=== PATIENT | female | born 1945 | race Caucasian/White ===

== ENCOUNTER 2018-06-25 16:52 | Emergency (ER) | payer MEDICARE, MEDICAID ==
--- NOTE | 2018-06-25 17:42 | CR ---
[id number] RAD/RAD Chest PA And Lateral EXAM: FRONTAL AND LATERAL CHEST INDICATION: Syncope and bradycardia. COMPARISON: May 14, 2015. DISCUSSION: Development of moderate enlargement of the heart which could be from cardiac enlargement or a pericardial effusion. Consider echocardiogram or CT to further evaluate for an effusion. The lungs are clear. IMPRESSION: 1. Development of significant cardiomegaly versus pericardial effusion. No current evidence of congestive heart failure. David Carcamo MD 06/25/18 [id number] Thank you for allowing us to participate in the care of your patient.
[2018-06-25 17:58] VITALS: BP 135/87
[2018-06-25] MEDS ORDERED: Sodium Chloride 0.9% 10 ML Syringe FLUSH PRN (18:00)
[2018-06-25 18:16] LABS: CHLORIDE,CL 105 mmol/L (98-107); SODIUM,NA 142 mmol/L (136-145)
[2018-06-25 18:18] LABS: ANION GAP 17.7 mmol/L (10-20)
[2018-06-25] MEDS ORDERED: Iopamidol 612 MG/ML 100 ML Bottle IVPUSH ONE (18:28)
--- NOTE | 2018-06-25 19:31 | CT ---
[id number] CT/CT Chest W IV EXAM: CHEST CT WITH CONTRAST INDICATION: CARDIOMEGALY VS PERICARDIAL EFFUSION. COMPARISON: Chest radiograph same date. DISCUSSION: The enlarged cardiac silhouette on chest radiograph relates to moderate cardiomegaly with a small pericardial effusion present along the right atrium. The lungs are hypoinflated with scattered subsegmental atelectasis. Mosaic attenuation could relate this to this incomplete inspiration or to air trapping. No infiltrates. No pleural effusions. No nodules. No lymphadenopathy. Moderate hiatus hernia. The imaged upper abdomen is unremarkable. Scattered degenerative changes in the spine. Mild chronic T3 and T4 compression fractures. IMPRESSION: 1. The heart is moderately enlarged accounting for the radiographic finding of an enlarged cardiac silhouette. There is a small pericardial effusion located along the right atrium. No current evidence of volume overload. 2. Scattered subsegmental atelectasis. David Carcamo MD 06/25/18 [id number] Thank you for allowing us to participate in the care of your patient.
--- NOTE | 2018-06-26 09:24 | EDM.PDOC ---
ED HPI GENERAL MEDICAL PROBLEM - General Chief Complaint: General Time Seen by Provider: 06/25/18 17:05 Source of Information: Reports: Patient History Limitations: Reports: No Limitations, Altered Mental Status - History of Present Illness INITIAL COMMENTS - FREE TEXT/NARRATIVE: EMS and police were sent to the patient's home for a welfare check. Pt. son states that the patient was not as talkative with him on the phone today. Pt. son lives in [place]. The son became concerned and called 911. He has a camera in her house so he can monitor her. Pt. has a longstanding mental health history, including bipolar and depression, as well as previous suicidal ideation in the past. The patient states that she has been taking her medication and has been eating and drinking adequately. Pt. PCP happened to be in the ER. He evaluated her and felt that she was behaving appropriately. Pt. offers no complaint. Son states that her mood will often change if she is stressed. She is planning on travelling to [place], and he feels that this may be what is stressing her out. Onset: Today Onset Date: 06/25/18 - Related Data Allergies Allergy/AdvReac Type Severity Reaction Status Date / Time codeine Allergy Other Verified 06/25/18 17:12 Home Meds: Home Meds Minocycline [Minocin] 100 mg PO BID 12/24/15 [History] Mirtazapine 15 mg PO BEDTIME 12/24/15 [History] PARoxetine [Paxil] 20 mg PO DAILY 12/24/15 [History] diphenhydrAMINE [Benadryl] 25 mg PO PRN 12/24/15 [History] traZODone 200 mg BEDTIME 12/24/15 [History] LORazepam 1 mg BEDTIME PRN 01/23/16 [History] Past Medical History - Past Health History Medical/Surgical History: Denies Medical/Surgical History Psychiatric History: Reports: Anxiety, Bipolar Social & Family History - Tobacco Use Smoking Status *Q: Never Smoker - Recreational Drug Use Recreational Drug Use: No ED ROS GENERAL - Review of Systems Review Of Systems: See Below Constitutional: Reports: No Symptoms HEENT: Reports: No Symptoms Respiratory: Reports: No Symptoms Cardiovascular: Reports: No Symptoms Endocrine: Reports: No Symptoms GI/Abdominal: Reports: No Symptoms : Reports: No Symptoms Musculoskeletal: Reports: No Symptoms Skin: Reports: No Symptoms Neurological: Reports: Other (see hpi) Psychiatric: Reports: Other (see hpi) Hematologic/Lymphatic: Reports: No Symptoms Immunologic: Reports: No Symptoms ED EXAM, GENERAL - Physical Exam Exam: See Below Exam Limited By: No Limitations General Appearance: Alert, WD/WN, No Apparent Distress Ears: Normal External Exam, Normal Canal, Hearing Grossly Normal, Normal TMs Nose: Normal Inspection, Normal Mucosa, No Blood Throat/Mouth: Normal Inspection, Normal Lips, Normal Teeth, Normal Gums, Normal Oropharynx, Normal Voice, No Airway Compromise Head: Atraumatic, Normocephalic Neck: Normal Inspection, Supple, Non-Tender, Full Range of Motion Respiratory/Chest: No Respiratory Distress, Lungs Clear, Normal Breath Sounds, No Accessory Muscle Use, Chest Non-Tender Cardiovascular: Normal Peripheral Pulses, Regular Rate, Rhythm, No Edema, No Gallop, No JVD, No Murmur, No Rub Peripheral Pulses: 3+: Radial (L) GI/Abdominal: Normal Bowel Sounds, Soft, Non-Tender, No Organomegaly, No Distention, No Abnormal Bruit, No Mass (Female) Exam: Deferred Rectal (Female) Exam: Deferred Back Exam: Normal Inspection, Full Range of Motion, NT Extremities: Normal Inspection, Normal Range of Motion, Non-Tender, Normal Capillary Refill, No Pedal Edema Neurological: Alert, Oriented, CN II-XII Intact, Normal Cognition, Normal Gait, Normal Reflexes, No Motor/Sensory Deficits, Inattentive, Other (answers all questions appropriately) Psychiatric: Flat Affect Skin Exam: Warm, Dry, Intact, Normal Color, Pallor EKG INTERPRETATION Rhythm: NSR Watson: Normal P-Wave: Present QRS: Normal ST-T: Normal QT: Normal Course - Vital Signs Last Recorded V/S: Last Vital Signs Temp 37.1 C 06/25/18 16:52 Pulse 91 06/25/18 16:52 Resp 16 06/25/18 16:52 BP 135/87 06/25/18 16:52 Pulse Ox 94 L 06/25/18 16:52 - Orders/Labs/Meds Orders: Active Orders 24 hr Category Date Time Status EKG Documentation Completion [RC] STAT Care 06/25/18 17:06 Active CULTURE BLOOD [BC] Stat Lab 06/25/18 17:30 Received CULTURE BLOOD [BC] Stat Lab 06/25/18 17:40 Received Blood Culture x2 Reflex Set [OM.PC] Stat Oth 06/25/18 17:08 Ordered Peripheral IV Insertion Adult [OM.PC] Routine Oth 06/25/18 18:00 Ordered Labs: Laboratory Tests 06/25/18 06/25/18 06/25/18 Range/Units 17:30 17:30 17:30 WBC 9.6 (4.0-10.0) x10^3/uL RBC 4.41 (4.00-5.50) x10^6/uL Hgb 12.7 D (12.0-16.0) g/dL Hct 38.8 (33.0-47.0) % MCV 88.0 (78.0-93.0) fL MCH 28.8 (26.0-32.0) pg MCHC 32.7 (32.0-36.0) g/dL RDW Coeff of Roseanna 14.9 (10.0-15.0) % Plt Count 334 (130-400) x10^3/uL Neut % (Auto) 70.5 (50.0-80.0) % Lymph % (Auto) 22.3 L (25.0-50.0) % [place] % (Auto) 6.9 (2.0-11.0) % Eos % (Auto) 0.2 (0.0-4.0) % Baso % (Auto) 0.1 L (0.2-1.2) % PT 11.3 (9.6-11.4) SEC INR 1.1 L (2.0-3.5) Sodium 142 (136-145) mmol/L Potassium 3.7 (3.5-5.1) mmol/L Chloride 105 (98-107) mmol/L Carbon Dioxide 23 (21-32) mmol/L Anion Gap 17.7 (10-20) mmol/L BUN 27 H (7-18) mg/dL Creatinine 1.0 (0.55-1.02) mg/dL Est Cr Clr Drug Dosing TNP Estimated GFR (MDRD) 55 Glucose 116 H (74-106) mg/dL Lactic Acid (0.4-2.0) mmol/L Calcium 9.7 (8.5-10.1) mg/dL Corrected Calcium 9.62 (8.5-10.1) mg/dL Magnesium 2.0 (1.8-2.4) mg/dL Total Bilirubin 0.6 (0.2-1.0) mg/dL AST 19 (15-37) U/L ALT 27 (14-59) U/L Alkaline Phosphatase 89 (46-116) U/L Troponin I < 0.017 (<=0.056) ng/mL C-Reactive Protein 0.2 (<=0.9) mg/dL Total Protein 7.1 (6.4-8.2) g/dL Albumin 4.1 (3.4-5.0) g/dL Globulin 3.0 Albumin/Globulin Ratio 1.37 TSH, Ultra Sensitive 3.922 H (0.358-3.74) uIU/mL Urine Color (YELLOW) Urine Appearance (CLEAR) Urine pH (5.0-8.0) Ur Specific [place] Urine Protein (NEGATIVE) mg/dL Urine Glucose (UA) (NEGATIVE) mg/dL Urine Ketones (NEGATIVE) mg/dL Urine Occult Blood (NEGATIVE) Urine Nitrite (NEGATIVE) Urine Bilirubin (NEGATIVE) Urine Urobilinogen (0.2) EU/dL Ur Leukocyte Esterase (NEGATIVE) Urine RBC (NOT SEEN) /HPF Urine WBC (NOT SEEN) /HPF Ur Squamous Epith Cells (NEGATIVE) /HPF Urine Bacteria (NEGATIVE) /HPF Urine Mucus (NEGATIVE) /LPF 06/25/18 06/25/18 Range/Units 17:30 18:00 WBC (4.0-10.0) x10^3/uL RBC (4.00-5.50) x10^6/uL Hgb (12.0-16.0) g/dL Hct (33.0-47.0) % MCV (78.0-93.0) fL MCH (26.0-32.0) pg MCHC (32.0-36.0) g/dL RDW Coeff of Roseanna (10.0-15.0) % Plt Count (130-400) x10^3/uL Neut % (Auto) (50.0-80.0) % Lymph % (Auto) (25.0-50.0) % [place] % (Auto) (2.0-11.0) % Eos % (Auto) (0.0-4.0) % Baso % (Auto) (0.2-1.2) % PT (9.6-11.4) SEC INR (2.0-3.5) Sodium (136-145) mmol/L Potassium (3.5-5.1) mmol/L Chloride (98-107) mmol/L Carbon Dioxide (21-32) mmol/L Anion Gap (10-20) mmol/L BUN (7-18) mg/dL Creatinine (0.55-1.02) mg/dL Est Cr Clr Drug Dosing Estimated GFR (MDRD) Glucose (74-106) mg/dL Lactic Acid 1.0 (0.4-2.0) mmol/L Calcium (8.5-10.1) mg/dL Corrected Calcium (8.5-10.1) mg/dL Magnesium (1.8-2.4) mg/dL Total Bilirubin (0.2-1.0) mg/dL AST (15-37) U/L ALT (14-59) U/L Alkaline Phosphatase (46-116) U/L Troponin I (<=0.056) ng/mL C-Reactive Protein (<=0.9) mg/dL Total Protein (6.4-8.2) g/dL Albumin (3.4-5.0) g/dL Globulin Albumin/Globulin Ratio TSH, Ultra Sensitive (0.358-3.74) uIU/mL Urine Color Dark yellow H (YELLOW) Urine Appearance Slightly cloudy H (CLEAR) Urine pH 5.5 (5.0-8.0) Ur Specific [place] 1.025 Urine Protein 30 H (NEGATIVE) mg/dL Urine Glucose (UA) Negative (NEGATIVE) mg/dL Urine Ketones 15 H (NEGATIVE) mg/dL Urine Occult Blood Trace-lysed H (NEGATIVE) Urine Nitrite Negative (NEGATIVE) Urine Bilirubin Small H (NEGATIVE) Urine Urobilinogen 0.2 (0.2) EU/dL Ur Leukocyte Esterase Negative (NEGATIVE) Urine RBC 5-10 H (NOT SEEN) /HPF Urine WBC 0-5 (NOT SEEN) /HPF Ur Squamous Epith Cells Few H (NEGATIVE) /HPF Urine Bacteria Few H (NEGATIVE) /HPF Urine Mucus Moderate H (NEGATIVE) /LPF Meds: Medications Discontinued Medications Generic Name Dose Route Start Last Admin Trade Name Freq PRN Reason Stop Dose Admin Iopamidol 100 ml 06/25/18 18:28 06/26/18 07:28 Isovue-300 (61%) IVPUSH 06/25/18 18:29 100 ml ONETIME ONE Administration Sodium Chloride 10 ml 06/25/18 18:00 Saline Flush FLUSH ASDIRECTED PRN Keep Vein Open - Radiology Interpretation Free Text/Narrative:: Chest x-ray showed cardiomegaly. CT chest with contrast showed small pericardial effusion Departure - Departure Time of Disposition: 21:30 Disposition: Home, Self-Care 01 Condition: Good Clinical Impression: Pericardial effusion - Discharge Information Referrals: Aris Eaton MD [Primary Care Provider] - Forms: ED Department Discharge Additional Instructions: Discussed findings with patient and family. We will discharge her with close followup with PCP. She will need an echocardiogram. I did speak with Dr. Thompson regarding this patient as well. I believe the effusion is an incidental finding. PCP will need to evaluate pt. ability to care for herself or if she will need outside help/placement elsewhere. This was discussed with son as well. From my prior dealings with the patient, she appears to be behaving normally. Home to rest. Drink plenty of fluids. You will be contacted by the clinic tomorrow regarding a follow-up appointment with Dr. Eaton and to schedule an echocardiogram. - My Orders Last 24 Hours: My Active Orders 06/25/18 17:06 EKG Documentation Completion [RC] STAT 06/25/18 17:08 Blood Culture x2 Reflex Set [OM.PC] Stat 06/25/18 17:30 CULTURE BLOOD [BC] Stat 06/25/18 17:40 CULTURE BLOOD [BC] Stat 06/25/18 18:00 Peripheral IV Insertion Adult [OM.PC] Routine - Assessment/Plan Last 24 Hours: My Active Orders 06/25/18 17:06 EKG Documentation Completion [RC] STAT 06/25/18 17:08 Blood Culture x2 Reflex Set [OM.PC] Stat 06/25/18 17:30 CULTURE BLOOD [BC] Stat 06/25/18 17:40 CULTURE BLOOD [BC] Stat 06/25/18 18:00 Peripheral IV Insertion Adult [OM.PC] Routine
== END 2018-06-25 21:30 | disposition home or self-care (01) ==
LOC: VM.ED 16:52
DX: I31.3 Pericardial effusion (noninflammatory) (principal); F41.9 Anxiety disorder, unspecified; F31.9 Bipolar disorder, unspecified; Z88.5 Allergy status to narcotic agent; Z79.899 Other long term (current) drug therapy
CPT/HCPCS: 36415; 71046; 71260; 80053; 81001; 83605; 83735; 84443; 84484; 85025; 85610; 86140; 87040; 93005; 99285

== ENCOUNTER 2018-06-26 18:46 | Emergency (ER) | payer MEDICARE, MEDICAID ==
[2018-06-26 18:53] VITALS: BP 137/96
--- NOTE | 2018-06-26 18:57 | EDM.PDOC ---
<DanielaFredy W - Last Filed: 06/26/18 18:57> ED HPI GENERAL MEDICAL PROBLEM - General Chief Complaint: Behavioral/Psych Stated Complaint: slow to respond Time Seen by Provider: 06/26/18 18:46 - History of Present Illness INITIAL COMMENTS - FREE TEXT/NARRATIVE: Refer to H and P from last night. Pt. son states that she continues to be less conversant this evening. He watches her on a closed circuit monitor and states that she has been quite inactive today. She was seen for the same last evening and was found to have a small pericardial effusion. Cardiology was consulted and advised she be scheduled for an echo as an outpatient. She was sent home by [facility] last night. There was no evidence of UTI or pneumonia on her exam last night. Vitals and labs were all WNL at that time. She is - Related Data Allergies Allergy/AdvReac Type Severity Reaction Status Date / Time codeine Allergy Other Verified 06/26/18 18:54 Home Meds: Home Meds RX: Minocycline [Minocin] 100 mg PO DAILY 12/24/15 [History] RX: traZODone 200 mg PO BEDTIME 12/24/15 [History] ARIPiprazole [Aripiprazole] 30 mg PO DAILY 06/26/18 [History] Cholecalciferol (Vitamin D3) [Vitamin D3] 2,000 unit PO DAILY 06/26/18 [History] Escitalopram [Lexapro] 20 mg PO DAILY 06/26/18 [History] RX: Melatonin 3 mg PO BEDTIME 06/26/18 [History] Past Medical History - Past Health History Medical/Surgical History: Denies Medical/Surgical History Psychiatric History: Reports: Anxiety, Bipolar Course - Vital Signs Last Recorded V/S: Last Vital Signs Temp 36.1 C 06/26/18 18:46 Pulse 83 06/26/18 18:46 Resp 12 06/26/18 18:46 BP 137/96 H 06/26/18 18:46 Pulse Ox 96 06/26/18 18:46 - Orders/Labs/Meds Orders: Active Orders 24 hr Category Date Time Status Sodium Chloride 0.9% [Normal Saline] 1,000 ml Med 06/26/18 20:15 Active IV ASDIRECTED Sodium Chloride 0.9% [Saline Flush] Med 06/26/18 20:03 Active 10 ml FLUSH ASDIRECTED PRN Peripheral IV Insertion Adult [OM.PC] Stat Oth 06/26/18 20:03 Ordered Medication Orders Sodium Chloride (Normal Saline) 1,000 mls @ 1,000 mls/hr IV ASDIRECTED KELLY Last Admin: 06/26/18 20:15 Dose: 1,000 mls/hr Sodium Chloride (Saline Flush) 10 ml FLUSH ASDIRECTED PRN PRN Reason: Keep Vein Open Labs: Laboratory Tests 06/26/18 06/26/18 Range/Units 19:23 19:23 WBC 9.1 (4.0-10.0) x10^3/uL RBC 4.39 (4.00-5.50) x10^6/uL Hgb 12.6 (12.0-16.0) g/dL Hct 38.4 (33.0-47.0) % MCV 87.5 (78.0-93.0) fL MCH 28.7 (26.0-32.0) pg MCHC 32.8 (32.0-36.0) g/dL RDW Coeff of Roseanna 14.9 (10.0-15.0) % Plt Count 302 (130-400) x10^3/uL Neut % (Auto) 70.1 (50.0-80.0) % Lymph % (Auto) 21.1 L (25.0-50.0) % [place] % (Auto) 8.3 (2.0-11.0) % Eos % (Auto) 0.3 (0.0-4.0) % Baso % (Auto) 0.2 (0.2-1.2) % Sodium 143 (136-145) mmol/L Potassium 3.6 (3.5-5.1) mmol/L Chloride 107 (98-107) mmol/L Carbon Dioxide 23 (21-32) mmol/L Anion Gap 16.6 (10-20) mmol/L BUN 32 H (7-18) mg/dL Creatinine 1.0 (0.55-1.02) mg/dL Est Cr Clr Drug Dosing TNP Estimated GFR (MDRD) 55 Glucose 109 H (74-106) mg/dL Calcium 9.7 (8.5-10.1) mg/dL Corrected Calcium 9.78 (8.5-10.1) mg/dL Total Bilirubin 0.6 (0.2-1.0) mg/dL AST 27 (15-37) U/L ALT 28 (14-59) U/L Alkaline Phosphatase 84 (46-116) U/L Total Protein 7.2 (6.4-8.2) g/dL Albumin 3.9 (3.4-5.0) g/dL Globulin 3.3 Albumin/Globulin Ratio 1.18 Meds: Medications Generic Name Dose Route Start Last Admin Trade Name Freq PRN Reason Stop Dose Admin Sodium Chloride 1,000 mls @ 1,000 mls/hr 06/26/18 20:15 06/26/18 20:15 Normal Saline IV 1,000 mls/hr ASDIRECTED KELLY Administration Sodium Chloride 10 ml 06/26/18 20:03 Saline Flush FLUSH ASDIRECTED PRN Keep Vein Open Departure - Departure Disposition: DC/Tfer to Psych Hosp/Unit 65 Clinical Impression: Catatonia associated with another mental disorder, Non compliance with medical treatment, Acute psychosis - Discharge Information Referrals: Aris Eaton MD [Primary Care Provider] - Forms: Interfacility Transfer EMTALA, ED Department Discharge - My Orders Last 24 Hours: My Active Orders 06/26/18 20:03 Sodium Chloride 0.9% [Saline Flush] 10 ml FLUSH ASDIRECTED PRN Peripheral IV Insertion Adult [OM.PC] Stat 06/26/18 20:15 Sodium Chloride 0.9% [Normal Saline] 1,000 ml IV ASDIRECTED - Assessment/Plan Last 24 Hours: My Active Orders 06/26/18 20:03 Sodium Chloride 0.9% [Saline Flush] 10 ml FLUSH ASDIRECTED PRN Peripheral IV Insertion Adult [OM.PC] Stat 06/26/18 20:15 Sodium Chloride 0.9% [Normal Saline] 1,000 ml IV ASDIRECTED <Nida Gates - Last Filed: 06/26/18 20:26> ED HPI GENERAL MEDICAL PROBLEM - General Source of Information: Reports: EMS, EMS Notes Reviewed, Family, Provider History Limitations: Reports: Altered Mental Status ED ROS GENERAL - Review of Systems Review Of Systems: Unable To Obtain ED EXAM, GENERAL - Physical Exam Exam: See Below Exam Limited By: Altered Mental Status General Appearance: Other (catatonic ) Eye Exam: Bilateral Eye: EOMI, PERRL Head: Atraumatic, Normocephalic Neck: Normal Inspection, Supple, Non-Tender, Full Range of Motion Respiratory/Chest: No Respiratory Distress, Lungs Clear, No Accessory Muscle Use , Chest Non-Tender Cardiovascular: Normal Peripheral Pulses, Regular Rate, Rhythm, No Edema GI/Abdominal: Normal Bowel Sounds, Soft, Non-Tender, No Distention, No Abnormal Bruit, No Mass Back Exam: Normal Inspection, Full Range of Motion Extremities: Normal Inspection, Normal Range of Motion, Non-Tender, Normal Capillary Refill Neurological: Alert, Slow to Respond Psychiatric: Flat Affect Skin Exam: Warm, Dry, Intact, Normal Color Lymphatic: No Adenopathy Course - Orders/Labs/Meds Labs: Laboratory Tests 06/26/18 06/26/18 Range/Units 19:23 19:23 WBC 9.1 (4.0-10.0) x10^3/uL RBC 4.39 (4.00-5.50) x10^6/uL Hgb 12.6 (12.0-16.0) g/dL Hct 38.4 (33.0-47.0) % MCV 87.5 (78.0-93.0) fL MCH 28.7 (26.0-32.0) pg MCHC 32.8 (32.0-36.0) g/dL RDW Coeff of Roseanna 14.9 (10.0-15.0) % Plt Count 302 (130-400) x10^3/uL Neut % (Auto) 70.1 (50.0-80.0) % Lymph % (Auto) 21.1 L (25.0-50.0) % [place] % (Auto) 8.3 (2.0-11.0) % Eos % (Auto) 0.3 (0.0-4.0) % Baso % (Auto) 0.2 (0.2-1.2) % Sodium 143 (136-145) mmol/L Potassium 3.6 (3.5-5.1) mmol/L Chloride 107 (98-107) mmol/L Carbon Dioxide 23 (21-32) mmol/L Anion Gap 16.6 (10-20) mmol/L BUN 32 H (7-18) mg/dL Creatinine 1.0 (0.55-1.02) mg/dL Est Cr Clr Drug Dosing TNP Estimated GFR (MDRD) 55 Glucose 109 H (74-106) mg/dL Calcium 9.7 (8.5-10.1) mg/dL Corrected Calcium 9.78 (8.5-10.1) mg/dL Total Bilirubin 0.6 (0.2-1.0) mg/dL AST 27 (15-37) U/L ALT 28 (14-59) U/L Alkaline Phosphatase 84 (46-116) U/L Total Protein 7.2 (6.4-8.2) g/dL Albumin 3.9 (3.4-5.0) g/dL Globulin 3.3 Albumin/Globulin Ratio 1.18 Meds: Medications Generic Name Dose Route Start Last Admin Trade Name Freq PRN Reason Stop Dose Admin Sodium Chloride 1,000 mls @ 1,000 mls/hr 06/26/18 20:15 06/26/18 20:15 Normal Saline IV 1,000 mls/hr ASDIRECTED KELLY Administration Sodium Chloride 10 ml 06/26/18 20:03 Saline Flush FLUSH ASDIRECTED PRN Keep Vein Open Departure - Departure Time of Disposition: 20:20 Condition: Good - Discharge Information *PRESCRIPTION DRUG MONITORING PROGRAM REVIEWED*: Not Applicable *COPY OF PRESCRIPTION DRUG MONITORING REPORT IN PATIENT MELCHOR: Not Applicable - Assessment/Plan Assessment:: More HPI: She's not sure why she is was brought in the emergency department. She is very slow to respond but is alert, talking, and answer all questions appropriately. She states she knows that her son called the ambulance. Denies any headache, nausea, blurred vision, chest pain, SOB, or edema. Pt was evaluated in the emergency department less than 24 hours ago for similar symptoms. The son is in [place] and is able to watch via camera. The son called and tried to talk to his mom on the phone yesterday and she was very slow to respond and was not acting appropriately. He ended up calling 911 and the patient was transferred here to the emergency department. Patient was evaluated for infectious disease process with no abnormalities found. Vitals remained stable and patient's cognition did not change. Patient was discharged back to home. Patient does have a history of bipolar depression and is on medications including abilify, lexapro, and ativan. It sounds according to the son she has not been taking her medications appropriately and she's been slowly declining. They are unsure if she is able to appropriately take care of herself at home. He states 1 week ago was upbeat responding appropriately and was to get on a plane this coming week. Yesterday he noticed a significant difference. A friend who is here today says she has not been eating or drinking. The pill containers brought in today reveal she has not been taking her medications for 10 days. Son states after she was discharged yesterday he watched on camera that she sat at the kitchen table and stood up and down for 3 hours. A friend who also stopped by the house said she has not been eating her meals on wheels and the house was a mess and cat feces was all over and a significant foul smell. 1. Catatonia Plan: 1. Labs completed in ER. 2. Head CT completed in the ER. Negative findings 3. [facility] electronic health record along with previous admission records reviewed 4. Son was contacted regarding his concerns. He agrees the patient should be admitted for further evaluation and management of her psychiatric medications 5. Consultation was completed with [facility] psychiatric unit Dr. Neri who has agreed to accept the patient. 6. An IV was started with IV fluids administered prior to discharge. Dr. Neri recommended IV hydration prior to admission. 7. Pt will be transported via ambulance
[2018-06-26 19:50] LABS: CHLORIDE,CL 107 mmol/L (98-107); SODIUM,NA 143 mmol/L (136-145)
[2018-06-26 19:53] LABS: ANION GAP 16.6 mmol/L (10-20)
--- NOTE | 2018-06-26 19:56 | CT ---
[id number] CT/CT Head WO IV EXAM: CT Head WO IV CLINICAL DATA: NEUROLOGIC DEFICIT COMPARISON: CORRELATION IS MADE WITH THE EXAM OF MAY 14, 2015. FINDINGS: There is no mass or mass effect. There is no hemorrhage or hydrocephalus. There are no extra-axial fluid collections. There are no sites of abnormal attenuation. IMPRESSION: NO PLAIN CT EVIDENCE OF ACUTE INTRACRANIAL PROCESS. Yan Gold MD 06/26/181954 Thank you for allowing us to participate in the care of your patient.
[2018-06-26] MEDS ORDERED: Sodium Chloride 0.9% 10 ML Syringe FLUSH PRN (20:03)
[2018-06-26] MEDS: Sodium Chloride 0.9% 1,000 ML IV SCH (20:15)
== END 2018-06-26 20:40 ==
LOC: VM.ED 18:46
DX: F20.2 Catatonic schizophrenia (principal); F41.9 Anxiety disorder, unspecified; Z91.14 Patient's other noncompliance with medication regimen; Z88.5 Allergy status to narcotic agent
CPT/HCPCS: 36415; 70450; 80053; 85025; 99285; J7030

== ENCOUNTER 2019-10-12 10:46 | Emergency (ER) | payer MEDICARE, MEDICAID ==
[2019-10-12 11:38] LABS: ANION GAP 18.8 mmol/L (10-20); CHLORIDE,CL 104 mmol/L (98-107); SODIUM,NA 142 mmol/L (136-145)
--- NOTE | 2019-10-12 11:45 | CT ---
[id number] CT/CT Head WO IV EXAM: CT Head WO IV CLINICAL DATA: CHANGE IN MENTAL STATUS COMPARISON: CORRELATION IS MADE WITH JUNE 26, 2018 FINDINGS: There is no mass or mass effect. There is no hemorrhage or hydrocephalus. There are no extra-axial fluid collections. There are no sites of abnormal attenuation. IMPRESSION: NO PLAIN CT EVIDENCE OF ACUTE INTRACRANIAL PROCESS. Yan Gold MD 10/12/19 [id number] Thank you for allowing us to participate in the care of your patient.
[2019-10-12 11:46] LABS: BARBITURATE SCREEN,URINE NEGATIVE (NEGATIVE); BENZODIAZEPINES SCREEN,URINE NEGATIVE (NEGATIVE); EDDP,URINE SCREEN NEGATIVE (NEGATIVE); METHAMPHETAMINE SCREEN, URINE NEGATIVE (NEGATIVE); TCA SCREEN,URINE NEGATIVE (NEGATIVE); THC SCREEN,URINE 50 NG/ML NEGATIVE (NEGATIVE)
--- NOTE | 2019-10-12 13:30 | EDM.PDOC ---
ED HPI GENERAL MEDICAL PROBLEM - General Chief Complaint: General Stated Complaint: ER Time Seen by Provider: 10/12/19 10:58 Source of Information: Reports: Patient, EMS History Limitations: Reports: Altered Mental Status - History of Present Illness INITIAL COMMENTS - FREE TEXT/NARRATIVE: Pt brought to ER via EMS after being noted by home health staff to be not responding Pt is seen by home health and was not responding to staff today Has hx/o bipolar disorder and disease and has been manic for past week and calling the office 5-6 times a day Was recently started on Seroquel 10/04 but stopped on 10/07 Review of med pack shows pt did not take meds last PM or this AM Pt had similar episode of same behavior about a year ago and required psych admission and ECT therapy Pt upon arrival to ER does not interact with staff and only answered a couple of questions, otherwise pt simply sat and stared Onset: Unknown/Unsure Location: Reports: Generalized Context: Reports: Other (Psych issues) Treatments TRACK OILER: Reports: Other (see below) Other Treatments TRACK OILER: Blood sugar 129 per EMS - Related Data Allergies Allergy/AdvReac Type Severity Reaction Status Date / Time codeine Allergy Other Verified 10/12/19 11:08 Home Meds: Home Meds Minocycline [Minocin] 100 mg PO DAILY 12/24/15 [History] traZODone 250 mg PO BEDTIME 12/24/15 [History] ARIPiprazole [Aripiprazole] 30 mg PO DAILY 06/26/18 [History] Cholecalciferol (Vitamin D3) [Vitamin D3] 2,000 unit PO DAILY 06/26/18 [History] Escitalopram [Lexapro] 20 mg PO DAILY 06/26/18 [History] Melatonin 10 mg PO BEDTIME 06/26/18 [History] Acetaminophen [Pain Reliever] 1,000 mg PO TID 10/12/19 [History] Glucosam/Chond/Collagen/Hyalur [Glucosamine Chondroitin] 1 each PO DAILY [History] Past Medical History - Past Health History Medical/Surgical History: Denies Medical/Surgical History Musculoskeletal History: Reports: Arthritis Psychiatric History: Reports: Anxiety, Bipolar Endocrine/Metabolic History: Reports: Osteopenia Social & Family History - Tobacco Use Smoking Status *Q: Unknown Ever Smoked ED ROS GENERAL - Review of Systems Review Of Systems: Unable To Obtain (pt does not respond to questions) Reason Not Obtained: Pt does not respond to questions ED EXAM, GENERAL - Physical Exam Exam: See Below Exam Limited By: Altered Mental Status General Appearance: No Apparent Distress Eye Exam: Bilateral Eye: EOMI, Normal Inspection, PERRL Ears: Normal TMs Throat/Mouth: Normal Oropharynx Head: Atraumatic Neck: Supple Respiratory/Chest: Lungs Clear Cardiovascular: Regular Rate, Rhythm GI/Abdominal: Soft Extremities: Normal Inspection Neurological: No Motor/Sensory Deficits Psychiatric: Other (Pt not responsive to staff No focal findings Pt very flat affect) Course - Vital Signs Last Recorded V/S: Last Vital Signs Temp 98.1 F 10/12/19 13:02 Pulse 98 10/12/19 13:02 Resp 14 10/12/19 13:02 BP 150/102 H 10/12/19 13:02 Pulse Ox 98 10/12/19 13:02 - Orders/Labs/Meds Labs: Laboratory Tests 10/12/19 10/12/19 10/12/19 Range/Units 11:12 11:12 11:33 WBC 7.3 (4.0-10.0) x10^3/uL RBC 3.86 L (4.00-5.50) x10^6/uL Hgb 10.1 L D (12.0-16.0) g/dL Hct 31.1 L (33.0-47.0) % MCV 80.6 D (78.0-93.0) fL MCH 26.2 (26.0-32.0) pg MCHC 32.5 (32.0-36.0) g/dL RDW Coeff of [place] 16.1 H (10.0-15.0) % Plt Count 360 (130-400) x10^3/uL Neut % (Auto) 74.4 (50.0-80.0) % Lymph % (Auto) 19.5 L (25.0-50.0) % [place] % (Auto) 5.7 (2.0-11.0) % Eos % (Auto) 0.0 (0.0-4.0) % Baso % (Auto) 0.4 (0.2-1.2) % Sodium 142 (136-145) mmol/L Potassium 3.8 (3.5-5.1) mmol/L Chloride 104 (98-107) mmol/L Carbon Dioxide 23 (21-32) mmol/L Anion Gap 18.8 (10-20) mmol/L BUN 22 H (7-18) mg/dL Creatinine 1.0 (0.55-1.02) mg/dL Est Cr Clr Drug Dosing TNP Estimated GFR (MDRD) 54 Glucose 109 H (74-106) mg/dL Calcium 9.0 (8.5-10.1) mg/dL Corrected Calcium 9.00 (8.5-10.1) mg/dL Total Bilirubin 0.7 (0.2-1.0) mg/dL AST 22 (15-37) U/L ALT 20 (14-59) U/L Alkaline Phosphatase 73 (46-116) U/L Total Protein 6.8 (6.4-8.2) g/dL Albumin 4.0 (3.4-5.0) g/dL Globulin 2.8 Albumin/Globulin Ratio 1.43 Urine Color Dark yellow H (YELLOW) Urine Appearance Slightly cloudy H (CLEAR) Urine pH 6.0 (5.0-8.0) Ur Specific [place] 1.020 Urine Protein Negative (NEGATIVE) mg/dL Urine Glucose (UA) Negative (NEGATIVE) mg/dL Urine Ketones 80 H (NEGATIVE) mg/dL Urine Occult Blood Negative (NEGATIVE) Urine Nitrite Negative (NEGATIVE) Urine Bilirubin Small H (NEGATIVE) Urine Urobilinogen 1.0 (0.2) EU/dL Ur Leukocyte Esterase Negative (NEGATIVE) Urine Opiates Screen (NEGATIVE) Ur Buprenorphine Scrn (NEGATIVE) Ur Oxycodone Screen (NEGATIVE) Ur EDDP (Meth Metab) (NEGATIVE) Urine Methadone Screen (NEGATIVE) Ur Barbiturates Screen (NEGATIVE) Ur Tricyclics Screen (NEGATIVE) Ur Phencyclidine Scrn (NEGATIVE) Ur Amphetamine Screen (NEGATIVE) U Methamphetamines Scrn (NEGATIVE) Urine MDMA Screen (NEGATIVE) U Benzodiazepines Scrn (NEGATIVE) U Cocaine Metab Screen (NEGATIVE) U Marijuana (THC) Screen (NEGATIVE) Ethyl Alcohol < 3 (0-3) mg/dL 10/12/19 Range/Units 11:33 WBC (4.0-10.0) x10^3/uL RBC (4.00-5.50) x10^6/uL Hgb (12.0-16.0) g/dL Hct (33.0-47.0) % MCV (78.0-93.0) fL MCH (26.0-32.0) pg MCHC (32.0-36.0) g/dL RDW Coeff of [place] (10.0-15.0) % Plt Count (130-400) x10^3/uL Neut % (Auto) (50.0-80.0) % Lymph % (Auto) (25.0-50.0) % [place] % (Auto) (2.0-11.0) % Eos % (Auto) (0.0-4.0) % Baso % (Auto) (0.2-1.2) % Sodium (136-145) mmol/L Potassium (3.5-5.1) mmol/L Chloride (98-107) mmol/L Carbon Dioxide (21-32) mmol/L Anion Gap (10-20) mmol/L BUN (7-18) mg/dL Creatinine (0.55-1.02) mg/dL Est Cr Clr Drug Dosing Estimated GFR (MDRD) Glucose (74-106) mg/dL Calcium (8.5-10.1) mg/dL Corrected Calcium (8.5-10.1) mg/dL Total Bilirubin (0.2-1.0) mg/dL AST (15-37) U/L ALT (14-59) U/L Alkaline Phosphatase (46-116) U/L Total Protein (6.4-8.2) g/dL Albumin (3.4-5.0) g/dL Globulin Albumin/Globulin Ratio Urine Color (YELLOW) Urine Appearance (CLEAR) Urine pH (5.0-8.0) Ur Specific [place] Urine Protein (NEGATIVE) mg/dL Urine Glucose (UA) (NEGATIVE) mg/dL Urine Ketones (NEGATIVE) mg/dL Urine Occult Blood (NEGATIVE) Urine Nitrite (NEGATIVE) Urine Bilirubin (NEGATIVE) Urine Urobilinogen (0.2) EU/dL Ur Leukocyte Esterase (NEGATIVE) Urine Opiates Screen Negative (NEGATIVE) Ur Buprenorphine Scrn Negative (NEGATIVE) Ur Oxycodone Screen Negative (NEGATIVE) Ur EDDP (Meth Metab) Negative (NEGATIVE) Urine Methadone Screen Negative (NEGATIVE) Ur Barbiturates Screen Negative (NEGATIVE) Ur Tricyclics Screen Negative (NEGATIVE) Ur Phencyclidine Scrn Negative (NEGATIVE) Ur Amphetamine Screen Negative (NEGATIVE) U Methamphetamines Scrn Negative (NEGATIVE) Urine MDMA Screen Negative (NEGATIVE) U Benzodiazepines Scrn Negative (NEGATIVE) U Cocaine Metab Screen Negative (NEGATIVE) U Marijuana (THC) Screen Negative (NEGATIVE) Ethyl Alcohol (0-3) mg/dL - Re-Assessments/Exams Free Text/Narrative Re-Assessment/Exam: 10/12/19 13:34 Pt remains flat and near catatonic Does not answer questions but was able to use bedside commode without assistance Pt has hx/o same in past with psych admit at [facility] for ECT Departure - Departure Time of Disposition: 13:45 Disposition: DC/Tfer to Psych Hosp/Unit 65 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
[2019-10-12] MEDS ORDERED: Sodium Chloride 0.9% 1,000 ML IV ONE (15:09)
[2019-10-12 15:23] VITALS: BP 162/100; PULSE 102
== END 2019-10-12 16:10 ==
LOC: VM.ED 10:46
DX: F20.2 Catatonic schizophrenia (principal); F31.9 Bipolar disorder, unspecified; F41.9 Anxiety disorder, unspecified; Z88.5 Allergy status to narcotic agent; Z79.899 Other long term (current) drug therapy
CPT/HCPCS: 36415; 70450; 80053; 80305; 80307; 81003; 85025; 96360; 99285; J7030; 99284-GF